=== PATIENT | male | born 1970 | race Caucasian/White ===

== ENCOUNTER 2018-10-01 02:46 | Emergency (ER) | payer BC, SELFPAY ==
[2018-10-01 02:47] VITALS: BP 160/74; PULSE 81; RESP 19; TEMP 36.8; O2SAT 98; BMI 27.6
--- NOTE | 2018-10-01 02:54 | RAD_ITS ---
HISTORY: Chest pain XR Chest 1 View TECHNIQUE: Single frontal view of chest. # of images incl. paperwork: 1 COMPARISON: None. FINDINGS: LINES: None. CARDIOVASCULAR STRUCTURES: Normal cardiomediastinal silhouette. Pulmonary vasculature appears normal. LUNGS: The lungs are clear. PLEURA: No pleural effusions or pneumothorax. BONES: No acute osseous abnormality of the thorax. RAD/Chest 1 View (Portable) IMPRESSION: 1. No acute cardiopulmonary disease. at 0322 Reported and signed by: Danyel Ely MD Electronically Signed: Danyel Ely MD at 3:21 EDT Tel , Service support ,
--- NOTE | 2018-10-01 02:54 | EKG12_ITS ---
Test Reason : Blood Pressure : / mmHG Vent. Rate : 063 BPM Atrial Rate : 063 BPM P-R Int : 168 ms QRS Dur : 092 ms QT Int : 426 ms P-R-T Axes : 060 041 031 degrees QTc Int : 435 ms Normal sinus rhythm Nonspecific T wave abnormality Abnormal ECG Confirmed by GABBY WEST, DENNY ([id number]), associate entertainment editor HAMILTON COOPER ([id number]) on 10/03/2018 11:54:32 AM Referred By: ABEL Confirmed By:DENNY PIERRE MD
--- NOTE | 2018-10-01 02:55 | CT_ITS ---
HISTORY: EPIGASTRIC AND RT FLANK PAIN,SOB,DIAPHORESIS,ELEVATED WBCHX:GALLSTONES,KIDNEY STONES EXAMINATION: CT Abdomen And Pelvis W/O Contrast TECHNIQUE: Helically acquired images were obtained of the abdomen and pelvis without oral or IV contrast as per renal stone protocol. A radiation dose optimization technique was used for this scan. IV Contrast dosage and agent: None. Oral contrast: None. COMPARISON: None FINDINGS: Lower thorax: Clear. No pleural effusion or pericardial effusion. The gallbladder is normally distended and shows a solitary 1 cm dense stone at the gallbladder neck. Stone density by CT is 317 HU. No gallbladder wall thickening or pericholecystic inflammatory changes. No biliary dilatation. Limited non-infusion exam. Allowing for this, negative liver, spleen, and pancreas. No pancreatic ductal dilatation. Both kidneys are normal in position. 3 x 1 mm calyceal stone, upper pole left kidney and additional 1-2 mm calyceal stone, mid pole of left kidney. Left renal mild hydronephrosis. No hydroureter or obstructing ureteral stones identified. The abdominal aorta is normal caliber. No free fluid or retroperitoneal lymph node enlargement. GI tract: No obstruction. Retrocecal normal appendix. Pelvis: Normal urinary bladder. No free fluid or lymph enlargement. Bones: No acute osseous abnormality. CT/Abdomen/Pelvis without Cont IMPRESSION: 1. Cholelithiasis. No biliary dilatation, free fluid, or acute abdominal disease identified. 2. Left renal small calyceal stones 2. Left renal mild hydronephrosis but without left hydroureter. Individualized dose optimization techniques were used for this CT. at 0442 Reported and signed by: Stephen Ricketts MD Electronically Signed: Stephen Ricketts, at 4:41 EDT Tel , Service support ,
--- NOTE | 2018-10-01 02:56 | ED.VIS.GEN ---
History of Present Illness Chief Complaint: Chest Pain Detail of Chief Complaint: Epigastric pain and kidney stone pain Informant: Patient Onset: Today Current Severity: Moderate Maximum Severity: Moderate Narrative: Patient reports getting sharp epigastric pain around 1 AM. This was followed shortly after by right flank pain consistent with prior kidney stones. He states he woke up somewhat short of breath and with stabbing epigastric pain continuing. Pain does not radiate into his chest or shoulders. Patient denies prior abdominal surgeries. He does have a few known gallstones. Past Medical History - Allergies and Home Meds Allergies/Adverse Reactions: Allergies No Known Allergies Allergy (Verified 10/01/18 02:49) Primary Care Physician: Tarik Carr III, MD [Primary Care Provider] - Prior records reviewed: Yes Past Medical History: - - Reviewed Smoking Status: Never smoker Review of Systems General: Denies: Chills, Fever Eyes: Denies: Visual changes - bilaterally ENT: Denies: Bilateral ear pain Cardiovascular: Denies: Chest pain Respiratory: Reports: Dyspnea. Denies: Cough Gastrointestinal: Reports: Abdominal pain. Denies: Vomiting, Diarrhea Genitourinary: Denies: Hematuria Musculoskeletal: Reports: Back pain - Flank pain Skin: Denies: Rash, Wounds Neurological: Denies: Weakness, Parasthesia Endocrine: Denies: Polyuria, Polydipsia Hematologic: Denies: Easy bruising Allergy: Denies: Uticaria Physical Exam Vital Signs/Narrative: Vital Signs Temp Pulse Resp BP Pulse Ox 10/01/18 02:47 98.3 F 81 19 H 160/74 H 98 Inital Vital Signs reviewed: Yes General: Well nourished, Well developed Head: Normocephalic ENT: Moist mucous membranes Neck: Supple Cardiovascular: Regular rate, Regular rhythm Respiratory: No distress, CTA bilaterally Abdomen: Soft, Tender - Epigastric tenderness palpation. No guarding or rebound., Hypoactive bowel sounds. Negative for: Nontender Extremities: Nontender, No edema, - - Equal pulses distally. Skin: Normal color, No rash Neurological: Alert, Oriented x3 Psychological: Normal affect Diagnostic/Tx/Re-eval Impressions Chest X-Ray 10/01/18 02:54 IMPRESSION: 1. No acute cardiopulmonary disease. at 0322 Reported and signed by: Danyel Ely MD Electronically Signed: Danyel Ely MD at 3:21 EDT Tel , Service support , Abdomen/Pelvis CT 10/01/18 02:55 IMPRESSION: 1. Cholelithiasis. No biliary dilatation, free fluid, or acute abdominal disease identified. 2. Left renal small calyceal stones 2. Left renal mild hydronephrosis but without left hydroureter. Individualized dose optimization techniques were used for this CT. at 0442 Reported and signed by: Stephen Ricketts MD Electronically Signed: Stephen Ricketts, at 4:41 EDT Tel , Service support , 10/01/18 02:54 Chest 1 View (Portable) [RAD] Stat 10/01/18 02:55 Abdomen/Pelvis without Cont [CT] Stat Laboratory Results 10/01/18 10/01/18 10/01/18 02:50 02:50 03:30 WBC 12.5 H RBC 5.31 Hgb 14.9 Hct 44.7 MCV 84.2 MCH 28.1 MCHC 33.3 RDW Std Deviation 36.5 RDW Coeff of Eleazar 12.2 Plt Count 266 MPV 10.1 Immature Gran % (Auto) 0.300 Neut % (Auto) 47.5 Lymph % (Auto) 36.8 Leake % (Auto) 9.7 Eos % (Auto) 5.0 Baso % (Auto) 0.7 Absolute Neuts (auto) 5.9 Absolute Lymphs (auto) 4.59 H Nucleated RBC % 0 Sodium 142 Potassium 3.2 L Chloride 106 Carbon Dioxide 28.0 Anion Gap 8 BUN 12 Creatinine 1.12 Estim Creat Clear Calc 78.04 Est GFR (MDRD) Af Amer 90 Est GFR (MDRD) Non-Af 74 BUN/Creatinine Ratio 10.7 Glucose 114 H Calcium 8.7 Total Bilirubin 0.50 Direct Bilirubin 0.13 AST 19 ALT 50 Alkaline Phosphatase 80 Troponin I < 0.015 Total Protein 7.6 Albumin 3.7 Globulin 3.9 Lipase 171 Urine Color Yellow Urine Clarity Clear Urine pH 7.0 Ur Specific [place] 1.015 Urine Protein Negative Urine Glucose (UA) Normal Urine Ketones Negative Urine Occult Blood Negative Urine Nitrite Negative Urine Bilirubin Negative Urine Urobilinogen Normal Ur Leukocyte Esterase Negative Urine RBC 0 SEEN Urine WBC 0 SEEN Ur Squamous Epith Cells 0 SEEN Urine Bacteria 0 SEEN Urine Mucus 0 SEEN - EKG Initial EKG Interpretation: Sinus Rhythm - Sinus at [address] change. - Medical Decision Making Patient was given morphine, Zofran, IV fluids. On repeat evaluation patient states he feels significantly improved. Test results are discussed with him. He believes his pain was triggered by taking his cholestyramine, which he states will often give him abdominal pain. He is comfortable discharged home to monitor his symptoms. ED Disposition - Plan for ED Patient: Disposition: Home or Assisted Living Diagnosis: Abdominal pain Instructions: ABDOMINAL PAIN, Unkown Cause, (Male) Referrals: Tarik Carr III, MD [Primary Care Provider] - 3-5 Days if not improving
[2018-10-01 03:02] LABS: Absolute Lymphocyte Count 4.59 X10^3/uL (0.83-4.51); Absolute Neutrophil Count 5.9 X10^3/uL (2.0-7.7); Basophil# 0.09 X10^3/uL; Basophil% 0.7 % (0-1); Eosinophil# 0.62 X10^3/uL; Hematocrit 44.7 % (40-54); Hemoglobin 14.9 g/dL (13.0-16.5); Lymphocyte # 4.59 X10^3/ul (4.0); Lymphocyte % 36.8 % (19-41); Mean Corp Hgb Conc 33.3 g/dL (32-36); Mean Corpuscular Hgb 28.1 pg (27.0-32.0); Mean Corpuscular Volume 84.2 fL (80-94); Mean Platelet Vol. 10.1 fl (6.2-12.0); Monocyte# 1.21 X10^3/uL; Monocyte% 9.7 % (0-10); NRBC Flagged by Analyzer 0 % (0-5); Neutrophil # 5.93 X10^3/uL (2.7-7.7); Neutrophil % 47.5 % (47-70); Platelet Count 266 K/mm3 (150-450); RBC Distribution Width CV 12.2 % (11.6-14.6); RBC Distribution Width SD 36.5 fl (35.1-43.9); Red Blood Count 5.31 M/mm3 (4.6-6.2); White Blood Count 12.5 K/mm3 (4.4-11.0)
[2018-10-01] MEDS: Ondansetron 4 MG/2 ML Vial IV (03:09)
[2018-10-01] MEDS: Morphine 4 MG/ML Syringe IV (03:09)
--- NOTE | 2018-10-01 03:11 | ED.RN ---
MORPHINE CONTAINER WAS THROWN IN SHARPS PRIOR TO SCANNING. PT RECEIVED APPROPRIATE DOSE ORDERED.
[2018-10-01] MEDS: 0.9% Normal Saline 1,000 ML 150 ML IV (03:15)
[2018-10-01 03:22] LABS: AST(SGOT) 19 U/L (15-37); Alanine Aminotransfer ALT/SGPT 50 U/L (16-61); Albumin, Serum 3.7 g/dL (3.2-5.0); Alkaline Phosphatase 80 U/L (45-117); Anion Gap 8 (5-15); BUN 12 mg/dL (7-18); BUN/Creat Ratio 10.7 RATIO (10-20); Bilirubin, Direct 0.13 mg/dL (0.00-0.30); Calcium,Total 8.7 mg/dL (8.5-10.1); Chloride 106 mmol/L (98-107); Creatinine, Serum 1.12 mg/dL (0.70-1.30); EST Glomerular Filtration Rate 74 mL/min (>60); Est Glom Filt Rate - Afr Amer 90 mL/min (>60); Estimated Creatinine Clearance 78.04 ml/min; Globulin 3.9 g/dL (2.2-4.2); Glucose 114 mg/dL (74-106); Lipase 171 U/L (73-393); Potassium 3.2 mmol/L (3.5-5.1); Protein, Total 7.6 g/dL (6.4-8.2); Sodium Level 142 mmol/L (136-145)
[2018-10-01 03:58] LABS: Bacteria 0 SEEN /hpf (None Seen); Mucous, Urine 0 SEEN /hpf (<or=2+); Red Blood Cells-Urine 0 SEEN /hpf (0-5); Squamous Epithelial Cells - UA 0 SEEN /hpf (0-5); White Blood Cells 0 SEEN /hpf (0-5)
[2018-10-01 04:02] LABS: Color, Urine Yellow (Yellow); Glucose, Dipstick Normal (Normal); Ketone-Dipstick Negative (Negative); Leukocyte Esterase-Dipstick Negative /ul (Negative); Nitrite-Dipstick Negative (Negative); Occult Blood-Urine Negative /ul (Negative); Protein-Dipstick Negative (Negative); Specific Gravity, Urine 1.015 (1.002-1.030); Urine Bilirubin Dipstick Negative (Negative); Urine Clarity Clear (Clear); Urine Urobilinogen Normal (Normal)
[2018-10-01 04:56] VITALS: BP 125/85; PULSE 73; RESP 16; O2SAT 99
== END 2018-10-01 05:02 | disposition home or self-care (01) ==
PROVIDERS: Emergency Provider Emergency Medicine; Family Provider Family Medicine; PCP Family Medicine
DX: R10.13 Epigastric pain (principal); R06.00 Dyspnea, unspecified; K80.20 Calculus of gallbladder without cholecystitis without obstruction; N13.2 Hydronephrosis with renal and ureteral calculous obstruction; Z87.442 Personal history of urinary calculi
CPT/HCPCS: 71045; 74176; 80048; 80076; 81001; 83690; 84484; 85025; 93005; 96361; 96374; 96375; 99285; J7030; A4216; J2405

== ENCOUNTER 2021-02-02 18:05 | Observation (INO) | payer BC, SELFPAY ==
[2021-02-02 18:07] VITALS: BP 167/104; PULSE 80; RESP 16; TEMP 36.1; O2SAT 100; BMI 28.7
[2021-02-02 18:35] VITALS: RESP 18
--- NOTE | 2021-02-02 18:40 | CT_ITS ---
STUDY: CT ABDOMEN AND PELVIS WITH CONTRAST REASON FOR EXAM: Male, 50 years old. Right upper quadrant pain bloating elevated white count RADIATION DOSAGE (If Supplied By Facility): CTDIvol = ( 13.79 ) mGy, DLP = ( 972.91 ) mGycm TECHNIQUE: CT images were obtained from the dome of the diaphragm to the symphysis pubis without oral contrast. IV 100mL Isovue-370 was administered. Sagittal and coronal images were reconstructed. Individualized dose optimization techniques were used for this CT. COMPARISON: 01 October 2018 FINDINGS: The visualized lung bases are unremarkable with benign 5 mm left lower lobe granuloma not requiring further follow-up imaging.. The visualized portions of the heart are within normal limits. Liver is normal with benign subcentimeter cysts not requiring further follow-up.. Gallbladder contains a 1 cm stone at the neck. There is questionable pericholecystic fluid/inflammation. Normal spleen. Normal pancreas. Normal bilateral adrenal glands. Normal right kidney. Normal left kidney. There are subcentimeter left renal cysts not requiring further follow-up. There is a central renal sinus cyst. There is no intestinal obstruction. Appendix is normal. Bowel is unremarkable. Normal abdominal aorta. Normal inferior vena cava. There is increased number of minimally enlarged scattered lymph nodes in the retroperitoneum and mesentery. These are nonspecific and were present in 2019. Normal urinary bladder. Normal abdominal wall. Normal osseous structures. 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 Foramina are moderately to severely stenotic bilaterally at multiple levels. CT/Abdomen/Pelvis W IV Cont ONLY IMPRESSION: 1. Cholecystolithiasis, possibly cholecystitis. Refer to ultrasonography for confirmation. 2. Nonspecific abdominal lymph nodes, not diagnostic of a single disease. These are potential associated with systemic conditions such as on immune disease, chronic viral infections etc. Broad laboratory assessment is advised. No imaging is needed at this point. Electronically Signed: Monika Melvin MD at 20:20 EST Tel , Service support ,
--- NOTE | 2021-02-02 18:41 | EDS_ITS ---
HPI HPI - GI History of Present Illness Chief Complaint: Abd Pain Informant: patient Abdominal Pain/Flank Pain Onset: Today Context: Gradual Onset Timing: Continuous Location: Epigastric and RUQ Current Severity: Mild Maximum Severity: Mild Worsened by: Nothing Relieved by: Nothing Nausea/Vomiting/Emesis GI Symptom: Positive for Nausea; Negative for Vomiting Onset: Today Diarrhea/Melena/Hematochezia GI Symptom: Negative for Diarrhea, Melena and Hematochezia Associated Symptoms Associated Symptoms: Negative for Dysuria, Frequency, Hematuria and Urgency Narrative Narrative: 50-year-old male history of kidney stones and known gallstones. Today after lunch she started having epigastric and right upper quadrant abdominal pain. Associated nausea no vomiting. No diarrhea or fever. No melena. The last several days and weeks has been doing well without pain. Denies any dysuria or change in his bowel habits. Prior similar symptoms: No Recent Illness/Hospitalization: No PFSH PFSH Medical History no medical history Home Medications esomeprazole magnesium mg 02/02/21 [History Last Taken Unknown] Allergy/AdvReac Type Severity Reaction Status Date / Time No Known Allergies Allergy Verified 02/02/21 18:07 Family History no significant family his Surgical History no surgical history Social History Smoking Status: Never smoker ROS ROS ED ROS Narrative Nausea and right upper quadrant abdominal pain. Review of Systems ROS Unobtainable: Denies due to encephalopathy Constitutional Constitutional ED: Denies fever(s) ENT ENT ED: Denies ear pain Cardiovascular Cardiovascular: Denies chest pain Respiratory/Chest Respiratory/Chest: Denies cough or dyspnea Gastrointestinal Gastrointestinal: Reports abdominal pain and nausea; Denies diarrhea or vomiting Genitourinary Genitourinary ED: Denies dysuria Musculoskeletal Musculoskeletal: Denies myalgias Integumentary Denies rash Neurologic Neurologic: Denies headache(s) Psychiatric Psychiatric: Denies depression Endocrine Endocrinology: Denies polyuria Hematologic/Lymphatic Hematologic/Lymphatic: Denies easy bruising Allergic/Immunologic Allergic/Immunologic ED: Denies urticaria EXAM Physical Exam Narrative Exam Narrative: 50-year-old male complaining of abdominal pain. Vital signs are stable afebrile edematous septic or toxic. H EENT exam unremarkable. Lungs are clear. Heart regular rhythm rate about 80 no murmur. Abdomen soft only minimal epigastric right upper quadrant tenderness. No Lambert sign. No rebound guarding or rigidity. Right lower quadrant unremarkable. No hernia or mass. No distention. No obstruction. Moving all 4 extremities. Back nontender. Neurologically is awake and alert. Const Vital Signs: 02/02/21 18:07 02/02/21 18:35 Temperature 97.0 F L Temperature Source Temporal Pulse Rate 80 Respiratory Rate 16 18 Blood Pressure 167/104 H Blood Pressure Mean 125 Pulse Ox 100 Oxygen Delivery Method Room Air Positive well nourished and well developed; Negative for obese, cachectic, contractures or unkempt General Appearance ED: well developed and NAD; Negative for unkempt, cachectic, contractures or pallor Nutritional Appearance: Negative for cachectic or obese HEENT Reports moist mucous membranes normocephalic and atraumatic Eyes PERRL and EOMs intact bilaterally Neck no lymphadenopathy, supple and no JVD General: Negative for tenderness Resp normal respiratory effort and clear to auscultation bilaterally Auscultation: Negative for rales, rhonchi or wheezes Cardio regular rate, regular rhythm, S1 normal heart sound, S2 normal heart sound and no murmurs GI non-distended and no masses; Negative for non-tender Inspection: Negative for abdominal distention Auscultation: normoactive bowel sounds; Negative for hyperactive bowel sounds or hypoactive bowel sounds Palpation: soft and tender; Negative for guarding, rigid or rebound tenderness present Back/Spine no CVA tenderness General Back: Negative for CVA tenderness Extremity full ROM General Extremety ED: Negative for edema or tenderness General Extremity: Negative for edema Neuro moves all extremities Sensorium / Orientation: alert, oriented to person, oriented to place and oriented to time; Negative for orientation impaired, confused, lethargic or stuporous Motor Exam: strength 5/5 throughout Psych mental status grossly normal and thought process normal Appearance: Negative for unkempt Mood & Affect: Negative for depressed or tearful Skin no wounds General Skin Exam: Negative for jaundice or pallor Lesions: no lesions Rashes: no rashes MDM MDM MDM Narrative Medical decision making narrative: 50-year-old male no acute distress abdominal pain. Consider biliary colic versus obstruction versus pancreatitis versus other etiologies. Treated with IV Toradol and Zofran labs and a CAT scan being obtained. Repeat exam patient is doing well at 8:04 PM. Abdomen is benign. Discussed with general surgeon on-call Dr. Jose Larson. Patient will be admitted for further evaluation most likely a laparoscopic cholecystectomy tomorrow. I discussed all this with the patient is comfortable with the plan. Lab Data Attestation: I reviewed the patient's lab results. Lab results narrative: CBC shows a white count 9.3. Hemoglobin 13.8. Electrolytes potassium 3.2 gap of 6 normal BUN of 13 creatinine 0.9. Liver enzymes completely normal. Lipase normal 116. CAT scan is read by the radiologist as questionable for cholecystitis and there is a gallstone in the neck of the common bile duct. Labs: Laboratory Results - last 24 hr 02/02/21 02/02/21 18:20 18:20 WBC 11.3 H RBC 4.91 Hgb 13.8 Hct 41.0 MCV 83.5 MCH 28.1 MCHC 33.7 RDW Std Deviation 36.7 RDW Coeff of Eleazar 12.2 Plt Count 283 MPV 10.3 Immature Gran % (Auto) 0.400 Neut % (Auto) 59.8 Lymph % (Auto) 25.9 [place] % (Auto) 6.9 Eos % (Auto) 6.5 H Baso % (Auto) 0.5 Absolute Neuts (auto) 6.7 Absolute Lymphs (auto) 2.92 Nucleated RBC % 0 Sodium 139 Potassium 3.2 L Chloride 107 Carbon Dioxide 26.0 Anion Gap 6 BUN 13 Creatinine 0.99 Estim Creat Clear Calc 86.36 Est GFR (MDRD) Af Amer 102 Est GFR (MDRD) Non-Af 84 BUN/Creatinine Ratio 13.1 Glucose 103 Calcium 8.5 Total Bilirubin 0.50 AST 22 ALT 49 Alkaline Phosphatase 73 Total Protein 7.6 Albumin 3.6 Globulin 4.0 Albumin/Globulin Ratio 0.9 Lipase 116 Radiography Diagnostic Testing: Clinical Impression(s) from Imaging Studies Abdomen/Pelvis CT 02/02/21 18:40 IMPRESSION: 1. Cholecystolithiasis, possibly cholecystitis. Refer to ultrasonography for confirmation. 2. Nonspecific abdominal lymph nodes, not diagnostic of a single disease. These are potential associated with systemic conditions such as on immune disease, chronic viral infections etc. Broad laboratory assessment is advised. No imaging is needed at this point. Electronically Signed: Monika Melvin MD at 20:20 EST Tel , Service support , Discharge Plan Triage Chief Complaint: Abd Pain ED Provider: Javier Pickard Dx/Rx/DC Orders Clinical Impression: Abdominal pain, Acute cholecystitis Prescriptions: No Action esomeprazole magnesium 20 mg capsule,delayed release(DR/EC) RF: 0 Primary Care Provider: Manolo Davidson Referrals: Manolo Davidson MD [Primary Care Provider] - Disposition Disposition: Acute Care Hospital [facility]
[2021-02-02] MEDS: Ketorolac 30 MG/ML Syringe IV (18:46)
[2021-02-02] MEDS: Ondansetron 4 MG/2 ML Vial IV (18:46)
[2021-02-02 19:05] LABS: Absolute Lymphocyte Count 2.92 X10^3/uL (0.83-4.51); Absolute Neutrophil Count 6.7 X10^3/uL (2.0-7.7); Basophil# 0.06 X10^3/uL; Basophil% 0.5 % (0-1); Eosinophil# 0.73 X10^3/uL; Eosinophils% 6.5 % (0-5); Hemoglobin 13.8 g/dL (13.0-16.5); Lymphocyte # 2.92 X10^3/ul (0.83-4.51); Lymphocyte % 25.9 % (19-41); Mean Corp Hgb Conc 33.7 g/dL (32-36); Mean Corpuscular Hgb 28.1 pg (27.0-32.0); Mean Corpuscular Volume 83.5 fL (80-94); Mean Platelet Vol. 10.3 fl (6.2-12.0); Monocyte# 0.78 X10^3/uL; Monocyte% 6.9 % (0-10); NRBC Flagged by Analyzer 0 % (0-5); Neutrophil # 6.74 X10^3/uL (2.7-7.7); Neutrophil % 59.8 % (47-70); Platelet Count 283 K/mm3 (150-450); RBC Distribution Width CV 12.2 % (11.6-14.6); RBC Distribution Width SD 36.7 fl (35.1-43.9); Red Blood Count 4.91 M/mm3 (4.6-6.2); White Blood Count 11.3 K/mm3 (4.4-11.0)
[2021-02-02 19:17] LABS: ALB/GLOB Ratio 0.9 RATIO (0.9-2.4); AST(SGOT) 22 U/L (15-37); Alanine Aminotransfer ALT/SGPT 49 U/L (16-61); Albumin, Serum 3.6 g/dL (3.2-5.0); Alkaline Phosphatase 73 U/L (45-117); Anion Gap 6 (5-15); BUN 13 mg/dL (7-18); BUN/Creat Ratio 13.1 RATIO (10-20); Calcium,Total 8.5 mg/dL (8.5-10.1); Chloride 107 mmol/L (98-107); Creatinine, Serum 0.99 mg/dL (0.70-1.30); EST Glomerular Filtration Rate 84 mL/min (>60); Est Glom Filt Rate - Afr Amer 102 mL/min (>60); Estimated Creatinine Clearance 86.36 ml/min; Glucose 103 mg/dL (74-106); Lipase 116 U/L (73-393); Potassium 3.2 mmol/L (3.5-5.1); Protein, Total 7.6 g/dL (6.4-8.2); Sodium Level 139 mmol/L (136-145)
[2021-02-02 20:49] VITALS: BP 161/99; PULSE 74; RESP 15; TEMP 36.6
--- NOTE | 2021-02-02 21:51 | PCS.PANDOC ---
PANDEMIC DOCUMENTATION INITIATED: Date: 02/02/2021 Time: 2150
--- NOTE | 2021-02-02 21:51 | PCS.PANDOC ---
PANDEMIC DOCUMENTATION INITIATED: Date: 09/23/2020 Time: 1900 emergency documentation 02/02/21 [id number]
[2021-02-02 21:53] VITALS: BMI 27.9
[2021-02-02 22:02] VITALS: BMI 27.9
[2021-02-02 22:06] VITALS: BP 196/118; PULSE 76; RESP 18; TEMP 36.9; O2SAT 98
[2021-02-02] MEDS: 0.9% Normal Saline 1,000 ML 100 ML IV (22:19)
[2021-02-02] MEDS: Potassium Chloride 10mEq/100mL 10 MEQ/100 ML IV.SOLN. 100 MEQ IV BOLUS (22:19)
[2021-02-02] MEDS: Potassium Chloride 10mEq/100mL 10 MEQ/100 ML IV.SOLN. 70 MEQ IV BOLUS (23:44)
[2021-02-02 23:51] VITALS: PULSE 66
[2021-02-02] MEDS: hydrALAZINE 20 MG/ML Vial 10 MG IV (23:51)
[2021-02-03] VITALS (12 sets, daily range): BP systolic 125–153; BP diastolic 73–91; PULSE 73–88; RESP 16–18; TEMP 36–37.7; O2SAT 96–100; BMI 27.9
--- NOTE | 2021-02-03 05:00 | EKG12_ITS ---
Test Reason : PREOP Blood Pressure : / mmHG Vent. Rate : 080 BPM Atrial Rate : 080 BPM P-R Int : 156 ms QRS Dur : 092 ms QT Int : 404 ms P-R-T Axes : 063 043 015 degrees QTc Int : 465 ms Normal sinus rhythm Normal ECG When compared with ECG of 01-OCT-2018 03:08, No significant change was found Confirmed by GABBY WEST, DENNY ([id number]), brands editor HAMILTON COOPER ([id number]) on 02/04/2021 10:10:35 AM Referred By: ZACK Confirmed By:DENNY PIERRE MD
[2021-02-03] MEDS: Ondansetron 4 MG/2 ML Vial IV ×2 (05:37→15:44)
[2021-02-03] MEDS: 0.9% Saline Lock 10 ML Syringe IV (05:37)
[2021-02-03 05:56] LABS: Absolute Lymphocyte Count 1.92 X10^3/uL (0.83-4.51); Basophil# 0.05 X10^3/uL; Basophil% 0.6 % (0-1); Eosinophil# 0.36 X10^3/uL; Hematocrit 41.3 % (40-54); Lymphocyte # 1.92 X10^3/ul (0.83-4.51); Lymphocyte % 21.3 % (19-41); Mean Corp Hgb Conc 33.9 g/dL (32-36); Mean Corpuscular Hgb 27.9 pg (27.0-32.0); Mean Corpuscular Volume 82.4 fL (80-94); Monocyte# 0.68 X10^3/uL; Monocyte% 7.5 % (0-10); NRBC Flagged by Analyzer 0 % (0-5); Neutrophil # 5.98 X10^3/uL (2.7-7.7); Neutrophil % 66.4 % (47-70); Platelet Count 260 K/mm3 (150-450); RBC Distribution Width CV 12.5 % (11.6-14.6); RBC Distribution Width SD 37.1 fl (35.1-43.9); Red Blood Count 5.01 M/mm3 (4.6-6.2)
[2021-02-03 06:20] LABS: Anion Gap 5 (5-15); BUN 11 mg/dL (7-18); BUN/Creat Ratio 11.3 RATIO (10-20); Calcium,Total 8.8 mg/dL (8.5-10.1); Chloride 109 mmol/L (98-107); Creatinine, Serum 0.98 mg/dL (0.70-1.30); EST Glomerular Filtration Rate 86 mL/min (>60); Est Glom Filt Rate - Afr Amer 104 mL/min (>60); Estimated Creatinine Clearance 87.24 ml/min; Glucose 104 mg/dL (74-106); Potassium 3.7 mmol/L (3.5-5.1); Sodium Level 139 mmol/L (136-145)
--- NOTE | 2021-02-03 06:30 | RAD_ITS ---
CLINICAL HISTORY: Male, 50 years old. Abdominal pain PROCEDURE: CHOLANGIOGRAM - intraoperative FLUOROSCOPY TIME (if supplied): (0:05) minutes/seconds TECHNIQUE: (All elements of maximal sterile barrier technique followed, including US elements as applicable) During cholecystectomy, a cannula was placed in the cystic duct remnant and contrast was injected to perform an intraoperative cholangiogram. FINDINGS: Examination of common bile duct demonstrates no evidence of filling defect to suggest common bile duct stone. No stricture or dilatation. There is passage of contrast through the ampulla into the duodenum. RAD/Cholangiogram/ O R,Initial IMPRESSION: No common bile duct stone. Electronically Signed: Morgan Martin MD at 12:01 EST Tel , Service support ,
[2021-02-03] MEDS: Acetaminophen 325 MG Tablet 650 MG PO ×2 (07:59→21:32)
--- NOTE | 2021-02-03 08:21 | HP.PCM.SX_ITS ---
HPI - General General Date of Admission: 02/02/21 HPI Narrative SHELLEY BEAR, is a 50 M who presents with abdominal pain. The patient notes that for the last few weeks he has had off-and-on epigastric pain. He reports that yesterday around noon he started having pain that did not remit. Patient does not note any nausea or vomiting. Pain is in the epigastric region radiating to the right back. [facility] Medical History Acid reflux Gall stone Kidney stones Medical History no medical history Home Medications esomeprazole magnesium mg 02/02/21 [History Last Taken Unknown] Allergy/AdvReac Type Severity Reaction Status Date / Time No Known Allergies Allergy Verified 02/02/21 18:07 Family History no significant family his Surgical History no surgical history Social History Smoking Status: Never smoker ROS Constitutional Constitutional: Denies anorexia or fatigue ENT HEENT: Denies abnormal hearing Cardiovascular Cardiovascular: Denies chest pain Respiratory/Chest Respiratory/Chest: Denies cough or dyspnea Gastrointestinal Gastrointestinal: Reports abdominal pain; Denies constipation, diarrhea, nausea or vomiting Genitourinary Genitourinary: Denies change in urinary stream Musculoskeletal Musculoskeletal: Denies abnormal gait Neurologic Neurologic: Denies abnormal gait Psychiatric Psychiatric: Denies anxiety Endocrine Endocrinology: Denies flushing Hematologic/Lymphatic Hematologic/Lymphatic: Denies easy bleeding Vital Signs Vital Signs Vital Signs: 02/02/21 18:07 02/02/21 18:35 02/02/21 20:49 Temperature 97.0 F L 97.8 F Temperature Source Temporal Temporal Pulse Rate 80 74 Respiratory Rate 16 18 15 Blood Pressure 167/104 H 161/99 H Blood Pressure Mean 125 119 Blood Pressure Source Blood Pressure Position Blood Pressure Location Pulse Ox 100 Oxygen Delivery Method Room Air 02/02/21 22:06 02/02/21 23:51 02/03/21 03:56 Temperature 98.4 F 98.2 F Temperature Source Oral Temporal Pulse Rate 76 66 84 Respiratory Rate 18 16 Blood Pressure 196/118 H 125/73 H Blood Pressure Mean 144 90 Blood Pressure Source Monitor Blood Pressure Position Semi-Fowlers Blood Pressure Location Left Arm Pulse Ox 98 100 Oxygen Delivery Method Room Air Room Air Weight Weight: 184 lb Body Mass Index (BMI) 27.9 Physical Exam Const oriented x3 and no apparent distress Resp normal respiratory effort Cardio regular rate and regular rhythm GI soft to palpation Palpation: tender RUQ Results Lab / Micro Data Result Diagrams: 02/03/21 05:40 02/03/21 05:40 Labs: Laboratory Results - last 24 hr 02/02/21 18:20: WBC 11.3 H, RBC 4.91, Hgb 13.8, Hct 41.0, MCV 83.5, MCH 28.1, MCHC 33.7, RDW Std Deviation 36.7, RDW Coeff of Leeazar 12.2, Plt Count 283, MPV 10 .3, Immature Gran % (Auto) 0.400, Neut % (Auto) 59.8, Lymph % (Auto) 25.9, [place] % (Auto) 6.9, Eos % (Auto) 6.5 H, Baso % (Auto) 0.5, Absolute Neuts (auto) 6.7, Absolute Lymphs (auto) 2.92, Nucleated RBC % 0 02/02/21 18:20: Sodium 139, Potassium 3.2 L, Chloride 107, Carbon Dioxide 26.0, Anion Gap 6, BUN 13, Creatinine 0.99, Estim Creat Clear Calc 86.36, Est GFR (MDRD) Af Amer 102, Est GFR (MDRD) Non-Af 84, BUN/Creatinine Ratio 13.1, Glucose 103, Calcium 8.5, Total Bilirubin 0.50, AST 22, ALT 49, Alkaline Phosphatase 73, Total Protein 7.6, Albumin 3.6, Globulin 4.0, Albumin/Globulin Ratio 0.9, Lipase 116 02/03/21 05:40: WBC 9.0, RBC 5.01, Hgb 14.0, Hct 41.3, MCV 82.4, MCH 27.9, MCHC 33.9, RDW Std Deviation 37.1, RDW Coeff of Eleazar 12.5, Plt Count 260, MPV 10.0, Immature Gran % (Auto) 0.200, Neut % (Auto) 66.4, Lymph % (Auto) 21.3, [place] % (Auto) 7.5, Eos % (Auto) 4.0, Baso % (Auto) 0.6, Absolute Neuts (auto) 6.0, Absolute Lymphs (auto) 1.92, Nucleated RBC % 0 02/03/21 05:40: Sodium 139, Potassium 3.7, Chloride 109 H, Carbon Dioxide 25.0, Anion Gap 5, BUN 11, Creatinine 0.98, Estim Creat Clear Calc 87.24, Est GFR (MDRD) Af Amer 104, Est GFR (MDRD) Non-Af 86, BUN/Creatinine Ratio 11.3, Glucose 104, Calcium 8.8 Micro: Microbiology 02/02/21 21:09 Nasal Secretion SARS-CoV-2 Antigen (Rapid) - Final Radiology Impression Abdomen/Pelvis CT 02/02/21 18:40 IMPRESSION: 1. Cholecystolithiasis, possibly cholecystitis. Refer to ultrasonography for confirmation. 2. Nonspecific abdominal lymph nodes, not diagnostic of a single disease. These are potential associated with systemic conditions such as on immune disease, chronic viral infections etc. Broad laboratory assessment is advised. No imaging is needed at this point. Electronically Signed: Monika Melvin MD at 20:20 EST Tel , Service support , Assessment & Plan Assessment/Plan (1) Acute cholecystitis: PLAN: Patient had a CT scan which shows thickening around the gallbladder wall as well as an ablation he does have elevated white count with a stone in the neck of the gallbladder. The patient likely has acute cholecystitis. Patient was admitted and given antibiotics kept n.p.o. and he will have laparoscopic cholecystectomy today. I discussed the procedure in detail with the patient. I discussed the risks, benefits, and alternatives of the procedure. I discussed the risks including but not limited to bleeding, infection, injury to surrounding organs such as the liver, bile duct, bowels. I did discuss the possibility of having to convert to an open procedure as well as the possibility that if any injuries occurred this may necessitate further surgery at a tertiary care center. Jose Toscano MD Pager: [facility] [address] [place] [address], [address] [place] [address] Office:
--- NOTE | 2021-02-03 11:00 | GALL_PTH ---
PATIENT: SHELLEY BEAR LOC: MS2 U#:[id number] AGE/SX: 50/M ROOM: [facility] [place] RE02/02/[address]: Dr. Jose Toscano MD : 1970 BED: 1 DIS: 02/04/2021 SPEC #: [id number] RECD: 02/03/21 13:18 STATUS: MARIA E JACINTO #: [id number] TATUM: 02/03/21 11:[address]: Jose Toscano DEPT: SURGICAL PATHOLOGY RECD BY: Courtney Mercedes ENTERED: 02/03/21 13:39 SP TYPE: LISA AGUIRRE DR: Dr. Manolo Davidson MD Tissues: Gallbladder, NOS Procedures: Surgery Specimen Level III HEADER OPERATION: Laparoscopic cholecystectomy with IOC PRE-OP DIAGNOSIS: Acute cholecystitis TISSUE SUBMITTED: Gallbladder MICROSCOPIC DIAGNOSIS Gallbladder, cholecystectomy: Chronic cholecystitis and cholelithiasis. SJ:dylan 02/04/2021 MICROSCOPIC DESCRIPTION Slides are reviewed. GROSS DESCRIPTION Received is one container labeled with the patient's name and designated gallbladder. The specimen consists of a gallbladder measuring 8 cm in length and up to 3 cm in diameter. A defect is noted at the fundus of the gallbladder. The external surface is pink-canas, smooth and glistening for the most part. Focally it is granular, hemorrhagic and contains cautery artifact. The gallbladder contains a small amount of green-yellow mucoid bile. Present in the container and also in the gallbladder are two black stones measuring 0.2 cm in greatest dimension (present in the gallbladder) and 1 cm in greatest dimension (present in the container). The mucosa is bile-stained and without any mass lesions. The gallbladder wall measures up to 0.5 cm in thickness. Increased amount of subserosal fat is noted. Automatic Profile Sander Operator sections from the gallbladder and the cystic duct are submitted in one cassette. / SJ:rg 02/03/21 TC:3 CPT: 71246
[2021-02-03] MEDS: Bupivacaine Mpf 0.5% 30 ML VIAL (11:56)
[2021-02-03] MEDS: Lactated Ringers 1,000 ML 30 ML IV (12:00)
--- NOTE | 2021-02-03 12:00 | OP.PCM_ITS ---
Problems Associated Problem List Diagnoses (1) Acute cholecystitis: Report of Operation Date of Procedure: 02/03/21 Pre-Operative Diagnosis: Acute cholecystitis Post-Operative Diagnosis: Same Surgery/Procedure Performed:: Laparoscopic cholecystectomy with cholangiogram Specimen's removed: Gallbladder Description of Procedure: After obtaining informed consent patient was brought back to the operating room. General anesthesia was induced. The abdomen was prepped and draped in usual sterile fashion. A small midline incision was made superior to the umbilicus and deepened to the level of fascia. The fascia was elevated and incised. Next the peritoneum was elevated and incised in the same fashion. Finger sweep was performed and the Marr trocar was placed into the abdomen. The balloon was inflated. The abdomen was inflated to 15 mmHg. Next a camera was introduced into the abdomen and the abdomen was inspected. Next under direct visualization three 5-mm ports were placed one subxiphoid and 2 subcostal. Next the gallbladder was elevated and retracted toward the right shoulder. The peritoneum was stripped from the gallbladder. The gallbladder was inflamed with edema. The infundibulum was located and retracted laterally. Next the triangle of Calot was dissected and the cystic duct and cystic artery were identified. Cholangiograms were performed. The Barraza clamp was used to clamp across the infundibulum and the catheter needle was inserted into the gallbladder. Under fluoroscopy contrast was instilled into the gallbladder and the common duct, cystic duct as well as proximal hepatic ducts were identified. There was good filling of the duodenum. There were no filling defects noted in the common bile duct. The clamp was removed as well as the needle and the infundibulum was grasped once more. Three hemolock clips were placed across the cystic duct. The cystic duct was then divided leaving 2 clips on the stump. The cystic artery was clipped and divided in the same fashion. The hook cautery was then used to take the gallbladder off of the gallbladder bed. Hemostasis was obtained. Gallbladder fossa was irrigated and no active bleeding or bile leakage was noted. Next the camera was introduced in the subxiphoid port. An Endopouch bag was placed through the umbilical port and the gallbladder was placed into it. The gallbladder was then removed through the umbilical incision. The camera was then reinserted through the umbilical port. The gallbladder fossa was inspected once more and noted to be hemostatic with no leaking bile. The abdomen was suctioned dry. The 5 mm ports were removed under direct visualization. The umbilical port was then removed and the air was removed from the abdomen. Next using an 0 Vicryl suture the umbilical fascia was closed in a [id number] fashion. The umbilical port site was irrigated local anesthetic was administered to all the incisions. All the incisions were closed with interrupted subcuticular 4-0 Monocryl sutures followed by Steri- Strips and dressings. The patient was awoken and taken to PACU in stable condition. Admit VTE Documentation VTE Mechan Device Prophylaxis: SCD's
--- NOTE | 2021-02-03 12:01 | EX.PCM.DISCH ---
Discharge Instructions Procedure Gallbladder Diet Discharge Diet: Light diet - advance as tolerated Activity Discharge Activity: May Not Drive (for 2-3 days or while taking narcotic pain medications.) and - (Do not drive, work heavy equipment or sign legal documents for 24 hours.) May shower in (days): 1 Lifting Restrictions: 20 lbs for 2 weeks Additional Activity Instructions:: Pain medication may cause nausea. You should typically eat light foods as you take your pain medications. Pain medication may also cause constipation. If this is a problem for you, please discuss with your doctor. Dressing / Incision Call your doctor if your incision/area has: Continuous Slow Oozing, Sudden Increased Bleeding, Increased Pain/ Swelling, Increased Redness and Foul Smelling Discharge Call your doctor if you observe: Fever of 101 or Higher Suture Line Care: Avoid Pulling/Pushing and Avoid Pinching/Bending Remove Dressing in: 2 days Additional Dressing/Incision Instructions:: Leave operative bandaids on for 2 days. When you remove dressing, leave Steri-Strips on until your follow-up appointment, or until the Steri-Strips fall off on their own. Follow Up Care Please Follow Up With: Jose Toscano MD When: Please call to schedule 2 week follow up appointment. [phone] Test Results: Test results from this visit will be discussed in further detail at your follow-up appointment, if applicable. Discharge Plan Admission Admit Date/Time: 02/02/21 20:48 Attending Provider: Jose Toscano Primary Care Provider: Manolo Davidson Discharge Orders/Prescriptions Prescriptions: New oxycodone-acetaminophen [Percocet] 5-325 mg tablet 1 - 2 tab PO Q6H 5 Days Qty: 20 RF: 0 Continued esomeprazole magnesium 20 mg capsule,delayed release(DR/EC) RF: 0 Referrals / Follow Up: Manolo Davidson MD [Primary Care Provider] - Disposition Disposition (needs filled in before D/C Order can be placed): Home, Self Care
[2021-02-03] MEDS: Pantoprazole Sodium 40 MG Tablet PO (13:45)
[2021-02-03] MEDS: oxyCODONE 5 MG Tablet PO (13:45)
[2021-02-03] MEDS: 0.9% Normal Saline 1,000 ML 15 ML IV (13:46)
[2021-02-03] MEDS: Morphine 2 MG/ML Syringe IV (15:44)
[2021-02-03] MEDS: Ketorolac 15 MG/ML Vial IV (18:14)
[2021-02-04] MEDS: Ketorolac 15 MG/ML Vial IV (02:42)
[2021-02-04 03:28] VITALS: BP 142/87; PULSE 71; RESP 16; TEMP 36.8; O2SAT 96
[2021-02-04 08:56] VITALS: BP 147/84; PULSE 80; RESP 18; TEMP 36.3; O2SAT 98
[2021-02-04] MEDS: Pantoprazole Sodium 40 MG Tablet PO (09:01)
== END 2021-02-04 09:53 | disposition home or self-care (01) ==
LOC: ED 20:48 → MS2 21:09
PROVIDERS: Admitting Provider Surgery; Emergency Provider Emergency Medicine; PCP Family Medicine; Visit Provider Surgery
PROC: (CPT 47610; principal; 2021-02-03 10:40)
DX: K80.12 Calculus of gallbladder with acute and chronic cholecystitis without obstruction (principal); Z87.442 Personal history of urinary calculi; K21.9 Gastro-esophageal reflux disease without esophagitis
CPT/HCPCS: 00790; 47563; 36415; 74177; 74300; 76000; 80048; 80053; 83690; 85025; 87426; 88304; 93005; 96365; 96366; 96375; 96376; 99218; 99251; 99284; J7030; J7050; J7120; Q9967; A4216; G0378; G0463; J2405

== ENCOUNTER 2024-06-20 17:46 | Emergency (ER) | payer BC, SELFPAY ==
[2024-06-20 17:48] VITALS: BP 157/92; PULSE 84; RESP 18; TEMP 36.2; O2SAT 99; BMI 27.9
--- NOTE | 2024-06-20 18:20 | CT_ITS ---
PROCEDURE: ABDOMEN/PELVIS W IV CONT ONLY 06/20/2024 REASON FOR EXAM: LLQ PAIN TECHNIQUE: Abdomen and pelvis CT with intravenous contrast. Coronal and Sagittal reconstruction series were provided. PATIENT PREPARATION: Per protocol ORAL CONTRAST TYPE: None. AMOUNT: mL CONTRAST: Omnipaque 350 VOLUME: 100 mL Not Provided Gauge IV One or more dose reduction techniques were used (e.g., Automated exposure control, adjustment of the mA and/or kV according to patient size, use of iterative reconstruction technique. COMPARISON: CT abdomen and pelvis 02/02/2021 FINDINGS: Lung bases: Mild dependent atelectasis Liver: Homogeneous attenuation. Scattered subcentimeter low-attenuation lesions, too small to characterize and likely benign. Gallbladder: No ductal dilation. Status post cholecystectomy. Spleen: Normal size. Pancreas: Normal size without evidence of mass surrounding inflammation or ductal dilation. Adrenals: Unremarkable. Kidneys: Bilateral simple cysts. No suspicious mass. 2 mm left upper pole calculus. No hydronephrosis. Bladder: Urinary bladder is unremarkable. Reproductive Organs: No prostatomegaly. Bowel: Stomach is unremarkable. No bowel dilation or significant wall thickening. Appendix: The appendix is not identified. There is no inflammatory process identified in the right lower quadrant to suggest appendicitis. Lymph nodes: No suspicious lymph node enlargement. Vasculature: The abdominal aorta and IVC are normal. Peritoneum / Retroperitoneum: No pneumoperitoneum. No ascites. Bones: No suspicious osseous abnormality. CT/Abdomen/Pelvis W IV Cont ONLY IMPRESSION: No acute findings in the abdomen and pelvis. 2 mm left upper pole nonobstructing calculus, without hydronephrosis. OVERALL FINAL ASSESSMENT: . LI-RADS is not meant to be used in patients <18 years or patients with cirrhosi s due to congenital hepatic fibrosis or due to vascular disorders, because these patients have a lower chance of developing HC C. Reading Location: [facility]
[2024-06-20] MEDS: 0.9% Normal Saline (1000mL) 1,000 ML 999 ML IV (18:27)
[2024-06-20 18:34] LABS: Absolute Lymphocyte Count 2.21 X10^3/uL (0.83-4.51); Absolute Neutrophil Count 4.9 X10^3/uL (2.0-7.7); Basophil# 0.05 X10^3/uL; Basophil% 0.6 % (0-1); Eosinophils% 4.8 % (0-5); Hematocrit 42.5 % (40-54); Hemoglobin 14.9 g/dL (13.0-16.5); Lymphocyte # 2.21 X10^3/ul (0.83-4.51); Lymphocyte % 26.8 % (19-41); Mean Corp Hgb Conc 35.1 g/dL (32-36); Mean Corpuscular Volume 82.8 fL (80-94); Mean Platelet Vol. 10.4 fl (6.2-12.0); Monocyte# 0.68 X10^3/uL; Monocyte% 8.2 % (0-10); NRBC Flagged by Analyzer 0 % (0-5); Neutrophil % 59.5 % (47-70); Platelet Count 304 K/mm3 (150-450); RBC Distribution Width CV 12.4 % (11.6-14.6); RBC Distribution Width SD 37.4 fl (35.1-43.9); Red Blood Count 5.13 M/mm3 (4.6-6.2); White Blood Count 8.3 K/mm3 (4.4-11.0)
[2024-06-20 18:59] LABS: Mucous, Urine 0 SEEN /hpf (<or=2+); Squamous Epithelial Cells - UA 0 SEEN /hpf (0-5)
[2024-06-20 19:01] LABS: Color, Urine Yellow (Yellow); Glucose, Dipstick Normal (Normal); Ketone-Dipstick Negative (Negative); Leukocyte Esterase-Dipstick Negative /ul (Negative); Nitrite-Dipstick Negative (Negative); Occult Blood-Urine 10 /ul (Negative); Protein-Dipstick 15 mg/dl (Negative); Specific Gravity, Urine 1.015 (1.002-1.030); Urine Bilirubin Dipstick Negative (Negative); Urine Clarity Clear (Clear); Urine Urobilinogen Normal (Normal)
[2024-06-20 19:23] VITALS: BP 139/84; PULSE 71; RESP 18; O2SAT 98
--- NOTE | 2024-06-20 19:26 | ED.VIS.GI ---
HPI HPI - GI History of Present Illness Chief Complaint: Abd Pain Informant: patient Narrative Narrative: 11-day history of left lower quadrant abdominal pain rating to his groin. States constant pain. No fever or chills. No urinary symptoms. This past Wednesday he loose watery stools denies bloody stools. With the urgent care was told to go to the ED. He decided to waited out. Yesterday called his PCP who also told him of the ED. He decided come today. He said continued watery loose stools. He is tolerating oral fluids. He states similar symptoms of pain a few years ago follow-up with his surgeon Dr. Garcia who did a colonoscopy within the last 5 years he describes diverticulosis from colonoscopy. No history of kidney stones. Patient on tamsulosin GERD medicine and blood pressure medicine. No blood thinners. He had emergent cholecystectomy in the past. Prior similar symptoms: Yes PFSH PFS Medical History Gall stone Kidney stones Acid reflux Acute cholecystitis Home Medications ?Medication ?Instructions ?Recorded ?Last Taken ?Type esomeprazole magnesium 20 mg 20 mg PO DAILY 02/02/21 06/20/24 History capsule,delayed release tamsulosin 0.4 mg capsule (Flomax) 0.4 mg PO DAILY 02/04/21 06/20/24 History lisinopril 10 mg tablet 10 mg PO DAILY 06/20/24 06/19/24 History Allergy/AdvReac Type Severity Reaction Status Date / Time No Known Allergies Allergy Verified 06/20/24 17:48 Surgical History History of cholecystectomy Social History housing: house Smoking Status: Never smoker ROS ROS ED Constitutional Constitutional ED: Denies chills, fever(s) or sweats ENT ENT ED: Denies sore throat Cardiovascular Cardiovascular: Denies chest pain, leg edema, palpitations or racing heartbeat Respiratory/Chest Respiratory/Chest: Denies cough, dyspnea or dyspnea on exertion Gastrointestinal Gastrointestinal: Reports abdominal pain and diarrhea; Denies nausea or vomiting Genitourinary Genitourinary ED: Denies dysuria, hematuria or urinary frequency Musculoskeletal Musculoskeletal: Denies back pain, extremity pain or neck pain Integumentary Denies rash or wounds Neurologic Neurologic: Denies headache(s), paresthesias or weakness EXAM Physical Exam Const Vital Signs: 06/20/24 17:48 06/20/24 19:23 06/20/24 21:00 Temperature 97.2 F L Temperature Source Temporal Pulse Rate 84 71 71 Respiratory Rate 18 18 16 Blood Pressure 157/92 H 139/84 H 133/87 H Blood Pressure Mean 113 102 102 Pulse Ox 99 98 96 Oxygen Delivery Method Room Air Room Air Room Air 06/20/24 22:16 06/20/24 22:25 Temperature 98.1 F Temperature Source Pulse Rate 72 70 Respiratory Rate 16 18 Blood Pressure 126/83 H 126/83 H Blood Pressure Mean 97 97 Pulse Ox 98 100 Oxygen Delivery Method Room Air Positive well nourished and well developed General Appearance ED: well developed and NAD HEENT Reports moist mucous membranes normocephalic and atraumatic Eyes General Eye ED: Yes normal appearance of both eyes Neck full ROM Chest Wall Chest: Negative for tenderness Resp normal respiratory effort and normal air movement Effort and Inspection: symmetric chest movement; Negative for respiratory distress Cardio regular rate, regular rhythm and no murmurs Peripheral Pulses: pulses 2+ throughout GI normal to inspection, nondistended, normoactive bowel sounds GI Narrative: Left lower quadrant tenderness no guarding or rebound. Negative Lambert's or McBurney's tenderness. Palpation: Negative for guarding or rebound tenderness present Extremity normal to inspection General Extremety ED: Negative for edema or tenderness General Extremity: Negative for edema Neuro oriented x3 and no sensory deficits noted Sensorium / Orientation: awake and alert Skin no rashes or lesions noted and no wounds MDM MDM MDM Narrative Medical decision making narrative: Interventions / MDM: Differential diagnosis: Abdominal pain, muscle strain, diarrhea Diagnosis considered but do not suspect: No clinical hernia. Diverticulitis, obstructive kidney stones however CT negative. No clinical scrotal torsion. My EKG interpretation: N/A Imaging independently reviewed and interpreted by myself: CT abdomen pelvis IV contrast: 2 mm left upper pole nephrolithiasis no obstructive uropathy. No other acute findings. External documents reviewed: N/A Test considered but not ordered:N/A ED course: 11 days pain left lower quadrant pain into his groin. No fever or chills had loose stools. Moist mucosal membranes on exam. IV established for fluids basic labs ordered urine ordered. CT scan of the pelvis for further evaluation. Declines any pain medicines. Workup labs urine negative. CT scan no acute process. 2 mm left nephrolithiasis noted nonobstructing. Reevaluation for an examination no hernias no testicular pain no epididymal pain no scrotal swelling. Reassured on findings. He will continue oral fluids for hydration with his loose stools. Electrolytes are normal. He will use Tylenol or Motrin as needed. He will follow-up with his PCP. All questions were answered. Re-evaluation: stable Disposition discussed with patient/family/significant other: Patient Case discussed with consulting clinician: N/A This note was generated with Cono-C dictation software. It may contain incorrect words, spelling, and punctuation that were not noted in checking the note before signing. Lab Data Attestation: I reviewed the patient's lab results. Labs: Laboratory Results - last 24 hr 06/20/24 06/20/24 17:58 18:03 WBC 8.3 RBC 5.13 Hgb 14.9 Hct 42.5 MCV 82.8 MCH 29.0 MCHC 35.1 RDW Std Deviation 37.4 RDW Coeff of Eleazar 12.4 Plt Count 304 MPV 10.4 Immature Gran % (Auto) 0.100 Neut % (Auto) 59.5 Lymph % (Auto) 26.8 Power % (Auto) 8.2 Eos % (Auto) 4.8 Baso % (Auto) 0.6 Absolute Neuts (auto) 4.9 Absolute Lymphs (auto) 2.21 Nucleated RBC % 0 Sodium 135 Potassium 3.7 Chloride 103 Carbon Dioxide 21.2 Anion Gap 11 BUN 15 Creatinine 0.97 Estim Creat Clear Calc 91.56 Est GFR (MDRD) Non-Af 93 BUN/Creatinine Ratio 15.8 Glucose 88 Calcium 8.9 Urine Color Yellow Urine Clarity Clear Urine pH 6.0 Ur Specific [place] 1.015 Urine Protein 15 H Urine Glucose (UA) Normal Urine Ketones Negative Urine Occult Blood 10 H Urine Nitrite Negative Urine Bilirubin Negative Urine Urobilinogen Normal Ur Leukocyte Esterase Negative Urine RBC 0-5 SEEN Urine WBC 0-5 SEEN Ur Squamous Epith Cells 0 SEEN Urine Bacteria RARE Urine Mucus 0 SEEN Radiography Diagnostic Testing: Clinical Impression(s) from Imaging Studies Abdomen/Pelvis CT 06/20/24 18:20 IMPRESSION: No acute findings in the abdomen and pelvis. 2 mm left upper pole nonobstructing calculus, without hydronephrosis. OVERALL FINAL ASSESSMENT: . LI-RADS is not meant to be used in patients <18 years or patients with cirrhosis due to congenital hepatic fibrosis or due to vascular disorders, because these patients have a lower chance of developing HCC. Reading Location: [facility] Discharge Plan Triage Chief Complaint: Abd Pain ED Provider: Stephen Marcano Dx/Rx/DC Orders Clinical Impression: Abdominal pain, Left nephrolithiasis Instructions: Abdominal Pain Prescriptions: No Action esomeprazole magnesium 20 mg capsule,delayed release(DR/EC) 20 mg PO DAILY tamsulosin [Flomax] 0.4 mg Capsule 0.4 mg PO DAILY lisinopril 10 mg tablet 10 mg PO DAILY Primary Care Provider: Manolo Davidson Referrals: Manolo Davidson MD [Primary Care Provider] - 1 Week if not improving Activity Restrictions/Additional Instructions: Your CT abdomen pelvis notes probably 2 mm left nephrolithiasis no obstruction. This is not causing your symptoms. No other acute findings noted. No diverticulitis. Urine and labs are normal. Continue Tylenol or Motrin as needed. Follow-up with your doctor. Print Language: Micronesian Disposition Disposition: Home, Self Care Discharge Date/Time: 06/20/24 22:46
[2024-06-20 19:27] LABS: Bacteria RARE /hpf (None Seen); Red Blood Cells-Urine 0-5 SEEN /hpf (0-5); White Blood Cells 0-5 SEEN /hpf (0-5)
[2024-06-20 19:47] LABS: Anion Gap 11 (5-15); BUN 15 mg/dL (4-19); BUN/Creat Ratio 15.8 RATIO (10-20); Calcium,Total 8.9 mg/dL (7.6-11.0); Carbon Dioxide 21.2 mmol/L (21.0-32.0); Chloride 103 mmol/L (98-108); Creatinine, Serum 0.97 mg/dL (0.70-1.20); EST Glomerular Filtration Rate 93 (>60); Estimated Creatinine Clearance 91.56 ml/min (50-250); Glucose 88 mg/dL (70-99); Potassium 3.7 mmol/L (3.3-5.1); Sodium Level 135 mmol/L (133-145)
[2024-06-20 21:00] VITALS: BP 133/87; PULSE 71; RESP 16; O2SAT 96
[2024-06-20 22:16] VITALS: BP 126/83; PULSE 72; RESP 16; O2SAT 98
[2024-06-20 22:25] VITALS: BP 126/83; PULSE 70; RESP 18; TEMP 36.7; O2SAT 100
== END 2024-06-20 22:46 | disposition home or self-care (01) ==
PROVIDERS: Emergency Provider Emergency Medicine; PCP Family Medicine; Visit Provider Emergency Medicine
DX: R10.32 Left lower quadrant pain (principal); N20.0 Calculus of kidney; Z90.49 Acquired absence of other specified parts of digestive tract; K21.9 Gastro-esophageal reflux disease without esophagitis; Z79.899 Other long term (current) drug therapy
CPT/HCPCS: 74177; 80048; 81001; 85025; 96360; 99282; Q9967; A4216